=== PATIENT | female | born 1975 | race Caucasian/White ===

== ENCOUNTER 2016-08-15 11:25 | Emergency (ER) | payer BC ==
--- NOTE | 2016-08-15 11:50 | EDM.PDOC ---
ED HPI Skin/Rash - General Chief Complaint: Skin Complaint Stated Complaint: INFECTION ON THE RIGHT SIDE OF NECK Time Seen by Provider: 08/15/16 11:56 Source: Reports: Patient History Limitations: Reports: No limitations - History of Present Illness INITIAL COMMENTS - FREE TEXT/NARRATIVE: History of present illness: [41-year-old female presenting with complaints of a blood bites or insect bite that has left a small abscess to right side of neck appear has gotten progressively larger and more painful] Review of systems: As per history of present illness and below otherwise all systems reviewed and negative. Past medical history: As per history of present illness and as reviewed below otherwise noncontributory. Surgical history: As per history of present illness and as reviewed below otherwise noncontributory. Social history: No reported history of drug or alcohol abuse. Family history: As per history of present illness and as reviewed below otherwise noncontributory. Physical exam: HEENT: Atraumatic, normocephalic, pupils reactive, negative for conjunctival pallor or scleral icterus, mucous membranes moist, throat clear, neck supple, nontender, trachea midline. Lungs: Clear to auscultation, breath sounds equal bilaterally, chest nontender. Heart: S1S2, regular, negative for clicks, rubs, or JVD. Abdomen: Soft, nondistended, nontender. Negative for masses or hepatosplenomegaly. Negative for costovertebral tenderness. Pelvis: Stable nontender. Genitourinary: Deferred. Rectal: Deferred. Extremities: Atraumatic, negative for cords or calf pain. Neurovascular unremarkable. Neuro: Awake, alert, oriented. Cranial nerves II through XII unremarkable. Cerebellum unremarkable. Motor and sensory unremarkable throughout. Exam nonfocal. Skin: Small purulent pustule noted on right side of neck. Small fluctuant area palpated decision to perform a small I&D. Area cleaned and prepped in the usual fashion with 2 mils of 1% lidocaine injected when anesthesia obtained 11 blade was used to incise a 5 mm area with purulent drainage easily expressed and small residual cyst sac removed. Diagnostics: [] Therapeutics: [I&D] Impression: [1 cm round abscess secondary to bite of insect] Plan: [antibiotics, small dressing] Definitive disposition and diagnosis as appropriate pending reevaluation and review of above. - Related Data Allergies Allergy/AdvReac Type Severity Reaction Status Date / Time aspirin Allergy Itching Verified 08/15/16 11:52 magnesium Allergy Swelling Verified 08/15/16 11:52 Penicillins Allergy Itching Verified 08/15/16 11:52 Sulfa (Sulfonamide Allergy Itching Verified 08/15/16 11:52 Antibiotics) Home Meds: Ambulatory Orders Medication Instructions Recorded Confirmed Doxycycline [Vibramycin] 100 mg PO Q12HR #20 cap 08/15/16 Past Medical History - Past Health History Medical/Surgical History: Denies Medical/Surgical History Social & Family History - Tobacco Use Smoking Status *Q: Never Smoker Second Hand Smoke Exposure: No - Caffeine Use Caffeine Use: Reports: None - Recreational Drug Use Recreational Drug Use: No ED ROS GENERAL - Review of Systems Review Of Systems: See Below (See history of present illness) ED EXAM, SKIN/RASH Exam: See Below (See history of present illness) Departure - Departure Time of Disposition: 12:38 Disposition: Home, Self-Care 01 Condition: good Clinical Impression: Abscess Forms: ED Department Discharge Additional Instructions: The following information is given to patients seen in the emergency department who are being discharged to home. This information is to outline your options for follow-up care. We provide all patients seen in our emergency department with a follow-up referral. The need for follow-up, as well as the timing and circumstances, are variable depending upon the specifics of your emergency department visit. If you don't have a primary care physician on staff, we will provide you with a referral. We always advise you to contact your personal physician following an emergency department visit to inform them of the circumstance of the visit and for follow-up with them and/or the need for any referrals to a consulting specialist. The emergency department will also refer you to a specialist when appropriate. This referral assures that you have the opportunity for follow-up care with a specialist. All of these measure are taken in an effort to provide you with optimal care, which includes your follow-up. Under all circumstances we always encourage you to contact your private physician who remains a resource for coordinating your care. When calling for follow-up care, please make the office aware that this follow-up is from your recent emergency room visit. If for any reason you are refused follow-up, please contact the [facility] Emergency Department at and asked to speak to the emergency department charge nurse. All the PCP 1-2 days Take medication as instructed Increase fluid intake Leave wound open may apply Band-Aid as needed return to ED as needed as discussed
[2016-08-15] MEDS ORDERED: Ketorolac 60 MG/2 ML SDV IM ONE (11:57)
[2016-08-15] MEDS ORDERED: Lidocaine 1% with EPINEPHrine 1:100,000 20 ML MDV INJECT ONE (11:57)
[2016-08-15 13:09] VITALS: BP 162/74
== END 2016-08-15 12:55 | disposition home or self-care (01) ==
LOC: MW.ED 11:25
DX: L02.11 Cutaneous abscess of neck (principal); Z88.6 Allergy status to analgesic agent; Z88.0 Allergy status to penicillin; Z88.2 Allergy status to sulfonamides; Z88.8 Allergy status to other drugs, medicaments and biological substances
CPT/HCPCS: 10060; 99282; 99283